=== PATIENT | male | born 1975 | race Caucasian/White ===

== ENCOUNTER 2016-10-15 21:42 | Emergency (ER) | payer OTHER | END 2016-10-16 01:20 | disposition left against medical advice (07) | LOC: ER 21:42 | DX: J94.2 Hemothorax (principal); J43.9 Emphysema, unspecified; R53.1 Weakness; F43.10 Post-traumatic stress disorder, unspecified; F41.9 Anxiety disorder, unspecified; I25.2 Old myocardial infarction; F17.220 Nicotine dependence, chewing tobacco, uncomplicated; Z87.442 Personal history of urinary calculi; Z88.6 Allergy status to analgesic agent | CPT/HCPCS: 36415; 96374; 96375; 96376; Q9967 ==

== ENCOUNTER 2016-11-02 19:04 | Emergency (ER) | payer OTHER | END 2016-11-02 19:11 | disposition home or self-care (01) | LOC: ER 19:04 | DX: J98.11 Atelectasis (principal); M54.6 Pain in thoracic spine; F41.9 Anxiety disorder, unspecified; F43.10 Post-traumatic stress disorder, unspecified; I25.2 Old myocardial infarction; F17.220 Nicotine dependence, chewing tobacco, uncomplicated; Z87.442 Personal history of urinary calculi; Z88.6 Allergy status to analgesic agent | CPT/HCPCS: 36415; 96374; 96375; 96376; Q9967 ==